=== PATIENT | male | born 1960 | race African-American/Black ===

== ENCOUNTER 2022-03-03 17:21 | Inpatient (IN) | payer OTHER ==
[2022-03-03 20:06] VITALS: BMI 27.2
[2022-03-03] MEDS ORDERED: MAGNESIUM HYDROX 2400MG/30ML ORAL SUSPENSION 30 ML CUP PO PRN (20:48)
[2022-03-03] MEDS ORDERED: POLYETHYLENE GLYCOL (HEALTHYLAX) 3350 17 GM PACKET PO PRN (20:48)
[2022-03-03] MEDS ORDERED: NALOXONE HCL (KLOXXADO) 8 MG SPRAY NS PRN (20:48)
[2022-03-03] MEDS ORDERED: NICOTINE 10 MG CARTRIDGE (INHALER) IH PRN (20:48)
[2022-03-03] MEDS ORDERED: ONDANSETRON *ODT* 4 MG TABLET SL PRN (20:48)
[2022-03-03] MEDS ORDERED: BENZOCAINE/MENTHOL (CHLORASEPTIC ) LOZENGE MM PRN (20:48)
[2022-03-03] MEDS ORDERED: IBUPROFEN 400 MG TABLET (FP) PO PRN (20:48)
[2022-03-03] MEDS ORDERED: chlordiazePOXIDE HCL 25 MG CAPSULE PO PRN (20:48)
[2022-03-03] MEDS ORDERED: LOPERAMIDE HCL 2 MG CAPSULE PO PRN (20:48)
[2022-03-03] MEDS ORDERED: DICYCLOMINE HCL 10 MG CAPSULE PO PRN (20:48)
[2022-03-03] MEDS ORDERED: MAG HYDROX/AL HYDROX/SIMETH 30 ML UNIT-DOSE CUP PO PRN (20:48)
[2022-03-03] MEDS ORDERED: METHOCARBAMOL 500 MG TABLET PO PRN (20:48)
[2022-03-03] MEDS ORDERED: IBUPROFEN 600 MG TABLET (FP) PO PRN (20:48)
[2022-03-03] MEDS ORDERED: BISMUTH SUBSALICYLATE 524 MG/30 ML PO PRN (20:48)
[2022-03-03] MEDS ORDERED: ACETAMINOPHEN 325 MG TABLET (FP) PO PRN ×2 (20:48)
[2022-03-03] MEDS: THIAMINE HCL 100 MG TABLET (FP) PO SCH (22:36)
[2022-03-03] MEDS: MELATONIN 5 MG TABLETS PO SCH (22:36)
[2022-03-03] MEDS: chlordiazePOXIDE HCL 25 MG CAPSULE PO SCH (22:37)
[2022-03-04] MEDS: chlordiazePOXIDE HCL 25 MG CAPSULE PO SCH ×4 (05:14→22:23)
[2022-03-04 10:04] LABS: CALCIUM 8.5 mg/dL (8.5-10.1)
[2022-03-04 10:05] LABS: ALBUMIN 3.3 g/dl (3.4-5.0); BLOOD UREA NITROGEN 14.9 mg/dL (7-18)
[2022-03-04 10:08] LABS: CREATININE 1.1 mg/dL (0.55-1.3)
[2022-03-04 10:10] LABS: BILIRUBIN,TOTAL 0.8 mg/dL (0.2-1); TOT PROT 6.6 g/dl (6.4-8.2)
[2022-03-04 10:28] LABS: HEMATOCRIT 43.2 % (35.4-49); HEMOGLOBIN 13.8 GM/dL (11.7-16.9); MCH 29.1 pg (25.7-33.7); MCHC 31.9 g/dl (32.0-35.9); MEAN PLT VOLUME 8.6 fl (7.5-11.1); PLATELET COUNT 201 10^3/uL (134-434); RBC 4.75 M/mm3 (4.00-5.60); RDW 12.9 % (11.9-15.9); WHITE BLOOD COUNT 4.4 K/mm3 (4.0-10.0)
[2022-03-04] MEDS: PRENATAL VITAMINS W/ FOLIC ACID TABLET (FP) PO SCH (10:35)
[2022-03-04] MEDS: THIAMINE HCL 100 MG TABLET (FP) PO SCH (22:23)
[2022-03-04] MEDS: MELATONIN 5 MG TABLETS PO SCH (22:23)
[2022-03-04] MEDS: risperiDONE 2 MG TABLET PO SCH (22:23)
[2022-03-04] MEDS: BENZTROPINE MESYLATE 1 MG TABLET PO SCH (22:23)
[2022-03-05] MEDS: chlordiazePOXIDE HCL 25 MG CAPSULE PO SCH ×4 (06:19→22:10)
[2022-03-05] MEDS: PRENATAL VITAMINS W/ FOLIC ACID TABLET (FP) PO SCH (10:14)
[2022-03-05] MEDS: BENZTROPINE MESYLATE 1 MG TABLET PO SCH (22:10)
[2022-03-05] MEDS: risperiDONE 2 MG TABLET PO SCH (22:10)
[2022-03-05] MEDS: MELATONIN 5 MG TABLETS PO SCH (22:10)
[2022-03-05] MEDS: THIAMINE HCL 100 MG TABLET (FP) PO SCH (22:11)
[2022-03-06] MEDS ORDERED: chlordiazePOXIDE HCL 10 MG CAPSULE PO PRN
[2022-03-06] MEDS ORDERED: chlordiazePOXIDE HCL 10 MG CAPSULE PO SCH (05:00)
[2022-03-06 06:32] VITALS: RESP 16
[2022-03-06 08:57] VITALS: BP 134/89; PULSE 86; TEMP 96.8
[2022-03-06] MEDS: PRENATAL VITAMINS W/ FOLIC ACID TABLET (FP) PO SCH (10:00)
[2022-03-07] MEDS ORDERED: chlordiazePOXIDE HCL 10 MG CAPSULE PO SCH (05:00)
[2022-03-08] MEDS ORDERED: chlordiazePOXIDE HCL 10 MG CAPSULE PO ONE (05:00)
== END 2022-03-06 10:08 | disposition left against medical advice (07) | DRG 894 ==
LOC: YASAS 17:21 → Y3N 22:14
PROVIDERS: ADMIT Allergy & Immunology; ATTEND Surgery
PROC: HZ2ZZZZ Detoxification Services for Substance Abuse Treatment (ICD-10-PCS; principal; 2022-03-03)
DX: F10.230 Alcohol dependence with withdrawal, uncomplicated (principal); F14.20 Cocaine dependence, uncomplicated; F12.20 Cannabis dependence, uncomplicated; F17.210 Nicotine dependence, cigarettes, uncomplicated; F20.9 Schizophrenia, unspecified; Z86.11 Personal history of tuberculosis; Z56.0 Unemployment, unspecified
CPT/HCPCS: 36415; 80053; 85027; 86780; 87811; 93005; 93010; C9803-CS; U0003; U0005